=== PATIENT | female | born 1965 | race Caucasian/White ===

== ENCOUNTER → 2020-12-11 | Outpatient (CLI) | payer BC | LOC: KOH-I 15:00 | DX: R51.9 Headache, unspecified (principal); R55 Syncope and collapse; R44.9 Unspecified symptoms and signs involving general sensations and perceptions | CPT/HCPCS: 70450 ==

== ENCOUNTER → 2021-01-29 | Outpatient (CLI) | payer BC | LOC: KOH-I 15:07 | DX: S99.912A Unspecified injury of left ankle, initial encounter (principal) | CPT/HCPCS: 73721 ==